=== PATIENT | male | born 1960 | race Caucasian/White ===

== ENCOUNTER 2016-10-13 06:50 | Day surgery (SDC) | payer BC, OTHER ==
[~2016-10-13 06:50] MED LIST: Lactated Ringers 1,000 ML IV SCH
[2016-10-13] MEDS ORDERED: Midazolam 1 MG/ML 2 ML SDV IV ONE (08:00)
[2016-10-13] MEDS ORDERED: Propofol 200 MG/20 ML SDV IV ONE (08:00)
[2016-10-13] MEDS ORDERED: Lidocaine 2% 100 MG/5 ML Syringe IVPUSH ONE (08:00)
--- NOTE | 2016-10-13 08:31 | PCM.OPNOTE ---
- General Post-Op/Procedure Note Date of Surgery/Procedure: 10/13/16 Operative Procedure(s): egd with biopsy Findings: gastritis distal esophagitis Pre Op Diagnosis: gerd with voice changes Post-Op Diagnosis: gastritis. distal esophagitis Anesthesia Technique: MAC Primary Surgeon: Luc Sal Anesthesia Provider: Ted Lane Pathology: stomach and distal esophagus Complications: None Condition: Good Free Text/Narrative:: see dictation
[2016-10-13 09:50] VITALS: BP 128/70
--- NOTE | 2016-10-13 11:27 | OR ---
DATE OF OPERATION: 10/13/2016 SURGEON: Luc Sal MD PROCEDURE PERFORMED: Esophagogastroduodenoscopy with cold forceps biopsy. PREOPERATIVE DIAGNOSIS: Voice changes and gastroesophageal reflux disease. POSTOPERATIVE DIAGNOSIS: Gastritis and distal esophagitis. INDICATIONS FOR PROCEDURE: This is a 56-year-old white male, who presents with the above-mentioned complaints. He was offered and accepted endoscopy. DESCRIPTION OF PROCEDURE: After an excellent IV sedation was administered, the bite block was inserted. The flexible endoscope was passed without difficulty down the patient's esophagus into the stomach. The stomach was insufflated, the scope was passed through the pylorus to the second portion of the duodenum and slowly withdrawn. The following findings were noted. Duodenum was unremarkable. Stomach, mild gastritis especially in the area of the antrum, biopsies were taken, and a small hiatal hernia was noted. GE junction measured at 40 cm. The esophagus, GE junction itself was irregular suggestive of intestinal metaplasia, also evidence of esophagitis was noted. Multiple circular biopsies were taken. This involved the distal 2 cm of the esophagus. The remainder of the esophageal exam was unremarkable. The area of the vocal cords was also carefully examined, there was no evidence, and a photo was taken of this normal appearing structure. The stomach was deflated, and scope was removed. The patient tolerated the procedure well and was taken to recovery in good condition. /[id number] /MODL
== END 2016-10-13 09:46 | disposition home or self-care (01) ==
LOC: FB.SDS 06:50
PROVIDERS: ATTEND Surgery
PROC: 0DB48ZX Excision of Esophagogastric Junction, Via Natural or Artificial Opening Endoscopic, Diagnostic (ICD-10-PCS; principal; 2016-10-13)
PROC: 0DB68ZX Excision of Stomach, Via Natural or Artificial Opening Endoscopic, Diagnostic (ICD-10-PCS; 2016-10-13)
DX: K29.50 Unspecified chronic gastritis without bleeding (principal); K20.8 Other esophagitis; R49.8 Other voice and resonance disorders; E11.9 Type 2 diabetes mellitus without complications; E78.5 Hyperlipidemia, unspecified; R73.01 Impaired fasting glucose; Z85.46 Personal history of malignant neoplasm of prostate
CPT/HCPCS: 43239; 88305; 88313; 88342; J7120; J2250; J2704